=== PATIENT | male | born 1990 | race Caucasian/White ===

== ENCOUNTER 2018-09-11 07:24 | Inpatient (IN) | payer MEDICAID ==
[2018-09-11] VITALS (17 sets, daily range): BP systolic 95–119; BP diastolic 49–70; PULSE 80–110; RESP 10–86; Ht 172.7 cm; Wt 81.0 kg
[~2018-09-11] VITALS: Ht 172.7 cm; Wt 81.0 kg
[~2018-09-11 07:24] MED LIST: SUCCINYLCHOLINE CHLORIDE 100 MG/5 ML SYG IV ONE
[2018-09-11] MEDS ORDERED: KETOROLAC 30 MG INJ IV STA (08:40)
[2018-09-11] MEDS ORDERED: KETOROLAC 30 MG INJ IM STA (09:00)
[2018-09-11] MEDS ORDERED: morphine 4 MG/ML VIAL IV STA (09:17)
[2018-09-11] MEDS ORDERED: ONDANSETRON 4 MG INJ IV STA (09:17)
[2018-09-11] MEDS ORDERED: SOD CHLORIDE 0.9% 1,000 ML IV STA (09:17)
[2018-09-11] MEDS ORDERED: PIPER-TAZO 3.375 GM IV (PMX) 100 ML IVPB ONE (09:30)
--- NOTE | 2018-09-11 10:08 | ERD ---
ER Documentation Chief Complaint Chief Complaint abdominal pain since yesterday HPI This is a 28-year-old Mongolian-speaking male presents to the ED with complaints of gradually worsening right lower quadrant since yesterday morning. Patient does report associated nausea and lack of appetite. He has not had any vomiting episodes. He denies any fevers, chills, constipation, dysuria, frequency, urgency. He states pain is 8 out of 10 and localized to his right lower quadrant. Denies any known exacerbating or relieving factors. He denies any history of similar pain. He did not take any pain medications prior to coming. Patient is otherwise healthy with no other complaints. ROS All systems reviewed and are negative except as per history of present illness. Allergies Allergies: Coded Allergies: No Known Allergy (Unverified , 09/11/18) PMhx/Soc Medical and Surgical Hx: pt denies Medical Hx, pt denies Surgical Hx Hx Alcohol Use: No Hx Substance Use: No Hx Tobacco Use: No Smoking Status: Never smoker Physical Exam Vitals Vital Signs Date Temp Pulse Resp B/P (MAP) Pulse Ox O2 O2 Flow FiO2 Time Delivery Rate 09/11/18 98.6 96 18 114/55 97 07:26 (74) Physical Exam Const: + Appears uncomfortable. Head: Atraumatic Eyes: Normal Conjunctiva ENT: Normal External Ears, Nose and Mouth. Neck: Full range of motion. No meningismus. Resp: Clear to auscultation bilaterally Cardio: Regular rate and rhythm, no murmurs Abd: Soft, + moderate right lower quadrant tenderness. No rebound or guarding. No distention. Bowel sounds normal. Skin: No petechiae or rashes Back: No midline or flank tenderness Ext: No cyanosis, or edema Neur: Awake and alert Psych: Normal Mood and Affect Result Diagram: 09/11/18 0837 09/11/18 0837 Results 24 hrs Laboratory Tests Test 09/11/18 08:37 09/11/18 08:38 09/11/18 09:45 White Blood Count 13.8 10^3/ul Red Blood Count 4.92 10^6/ul Hemoglobin 15.7 g/dl Hematocrit 43.6 % Mean Corpuscular Volume 88.6 fl Mean Corpuscular Hemoglobin 31.9 pg Mean Corpuscular 36.0 g/dl Hemoglobin Concent Red Cell Distribution Width 12.1 % Platelet Count 228 10^3/UL Mean Platelet Volume 9.9 fl Immature Granulocytes % 0.600 % Neutrophils % 82.5 % Lymphocytes % 8.5 % Monocytes % 8.1 % Eosinophils % 0.1 % Basophils % 0.2 % Nucleated Red Blood Cells % 0.0 /100WBC Immature Granulocytes # 0.080 10^3/ul Neutrophils # 11.4 10^3/ul Lymphocytes # 1.2 10^3/ul Monocytes # 1.1 10^3/ul Eosinophils # 0.0 10^3/ul Basophils # 0.0 10^3/ul Nucleated Red Blood Cells # 0.0 10^3/ul Sodium Level 140 mmol/L Potassium Level 4.0 mmol/L Chloride Level 100 mmol/L Carbon Dioxide Level 28 mmol/L Anion Gap 12 Blood Urea Nitrogen 13 mg/dl Creatinine 0.83 mg/dl Est Glomerular Filtrat > 60 mL/min Rate mL/min Glucose Level 109 mg/dl Calcium Level 9.8 mg/dl Total Bilirubin 2.9 mg/dl Direct Bilirubin 0.00 mg/dl Indirect Bilirubin 2.9 mg/dl Aspartate Amino Transf (AST/SGOT) 23 IU/L Alanine 29 IU/L Aminotransferase (ALT/SGPT) Alkaline Phosphatase 62 IU/L Total Protein 8.6 g/dl Albumin 5.0 g/dl Globulin 3.60 g/dl Albumin/Globulin Ratio 1.38 Lipase 63 U/L Urine Color YELLOW Urine Clarity CLEAR Urine pH 7.0 Urine Specific [place] 1.018 Urine Ketones 1+ mg/dL Urine Nitrite NEGATIVE mg/dL Urine Bilirubin NEGATIVE mg/dL Urine Urobilinogen NEGATIVE mg/dL Urine Leukocyte Esterase NEGATIVE Shivam/ul Urine Hemoglobin NEGATIVE mg/dL Urine Glucose NEGATIVE mg/dL Urine Total Protein NEGATIVE mg/dl Prothrombin Time 14.5 Sec Prothrombin Time Ratio 1.1 INR International 1.12 Normalized Ratio Activated Partial Thromboplast 34.0 Sec Time Current Medications Medications Dose Sig/Eder Start Time Status Last (Trade) Ordered Route PRN Stop Time Admin Dose Reason Admin Ketorolac 30 mg ONCE STAT 09/11/18 DC Tromethamine IV 08:40 09/11/18 (Toradol) 09:01 Ketorolac 30 mg ONCE STAT 09/11/18 DC 09/11/18 Tromethamine IM 09:00 09/11/18 09:15 (Toradol) 09:01 Sodium 1,000 ml @ Q1H STAT 09/11/18 DC 09/11/18 Chloride 1,000 mls/hr IV 09:17 09/11/18 09:31 10:16 Piperacillin 100 ml @ ONCE ONCE 09/11/18 DC 09/11/18 Sod/ 200 mls/hr IVPB 09:30 09/11/18 09:38 Tazobactam 09:59 Sod Morphine 4 mg ONCE STAT 09/11/18 DC 09/11/18 Sulfate IV 09:17 09/11/18 09:31 (morphine) 09:22 Ondansetron 4 mg ONCE STAT 09/11/18 DC 09/11/18 HCl (Zofran IV 09:17 09/11/18 09:31 Inj) 09:22 Procedures/MDM EMERGENT LABS AND DIAGNOSTIC STUDIES: Lab Results above were reviewed and interpreted by me as below. CBC: + WBC of 13 with a left shift. CMP: no e/o severe acidosis, alkalosis, renal failure, diabetic ketoacidosis, liver disease Urine: no e/o acute infection or hematuria Radiology Results as interpreted by Radiology: PROCEDURE: ULTRASOUND ABDOMEN RIGHT LOWER QUADRANT CLINICAL INDICATION: 28-year-old male with right lower quadrant pain. TECHNIQUE: Multiple sonographic images of the right lower quadrant of the abdomen utilizing a linear ray transducer and graded compressive sonography. The images were reviewed on a high-resolution PACS workstation. COMPARISON: None. FINDINGS: There is a tubular structure within the right lower quadrant believed to represent the appendix measuring approximately 12 mm in greatest transverse dimension which is noncompressible. There is no significant free fluid or focal area of abnormal echogenicity. IMPRESSION: Noncompressible 12 mm tubular structure which is believed to represent the appendix. This is consistent with sonographic evidence for appendicitis. Clinical correlation is necessary. PROCEDURE: CT Abdomen and Pelvis without contrast. CLINICAL INDICATION: Abdominal pain. TECHNIQUE: Routine axial tomographic images of the abdomen and pelvis were obtained from the domes the diaphragm to the symphysis pubis. The patient was scanned withoutoral or intravenous contrast. Coronal and sagittal reformatted images were obtained from the axial source images. Images were reviewed on a high-resolution PACS workstation. The total exam CTDI equals 10.94 mGy and the total exam DLP equals 679.86 mGy-cm. One or more of the following dose reduction techniques were used: Automated exposure control, adjustment of the mA and / or kV according to patient size, or use of iterative reconstruction technique. DICOM images are available. COMPARISON: None. FINDINGS: The visualized portions of the lung bases are clear. Evaluation of the intra-abdominal solid organs is somewhat limited on this noncontrast examination. The liver appears normal in size. There is no intra or extrahepatic biliary dilatation. The gallbladder is unremarkable by CT cr iteria. The spleen, pancreas, and adrenal glands are unremarkable. The kidneys are symmetric in size. No renal, ureteral, or bladder calculi are identified. No perinephric inflammatory changes are identified. The urinary bladder is grossly unremarkable. The bowel demonstrates normal course and caliber. There is no evidence of bowel obstruction. There is an appendicolith in the appendiceal lumen. The distal appendix is mildly distended measuring 10 mm in diameter with thickening of the appendiceal wall and mild periappendiceal fat stranding. The pelvic organs are grossly unremarkable. No intraperitoneal free fluid, free air, or abscess is identified. No retroperitoneal, mesenteric, or inguinal lymphadenopathy is identified. The aorta is normal in caliber. The osseous structures demonstrate bilateral L5 pars defects. No significant subcutaneous soft tissue abnormalities are seen. IMPRESSION: 1. Acute appendicitis. No intraperitoneal free air or abscess is seen, although evaluation is limited secondary to absence of IV contrast. 2. L5 spondylolysis without spondylolisthesis. Nursing Notes Reviewed. Previous Medical Records requested via the Electronic Health Record. EMERGENCY DEPARTMENT COURSE / MEDICAL DECISION MAKING: This is a 28-year-old male presents the ED with right lower quadrant pain, concerning for appendicitis. CBC was remarkable for leukocytosis with a left shift, otherwise normal. CMP, UA unremarkable. Ultrasound revealed a noncompressible 12 mm tubular structure, believed to represent the appendix. I spoke with the on-call physician surgeon Dr. Vasquez who requested that patient get a CT of the abdomen which which was ordered and confirmed diagnosis. No signs of perforation or abscess. I discussed results with patient at bedside. Symptoms are currently in control. He was started on IV fluids, Zofran, morphine as well as Zosyn for prophylactic coverage. I spoke with Dr. Vasquez who will take patient to surgery today. Also spoke with my supervising physici michael, Dr. Huynh who will speak with the on-call hospitalist for admission and further management. Departure Diagnosis: Primary Impression: Appendicitis Appendicitis type: acute appendicitis Acute appendicitis type: with localized peritonitis Appendicitis gangrene presence: without gangrene Appendicitis perforation presence: without perforation Appendicitis abscess presence: without abscess Qualified Codes: K35.30 - Acute appendicitis with localized peritonitis, without perforation or gangrene Condition: BHUPINDER Badillo PA-C Sep 11, 2018 10:08
--- NOTE | 2018-09-11 15:08 | PREAC ---
Date/Time of Note Date/Time of Note DATE: 09/11/18 TIME: 15:07 Anesthesia Eval and Record Evaluation Time Pre-Procedure Interview DATE: 09/11/18 TIME: 15:07 Age 28 Sex male NPO: 8 hrs Preoperative diagnosis appendicitis Planned procedure laproscopic appendectomy Past Medical History Past Medical History: None Surgery & Anesthesia Issues No known issue Meds Anticoagulation: No Beta Oneal within 24 hr: No Reason Beta Oneal not given: Pt. not on B-Oneal No Active Prescriptions or Reported Meds Meds reviewed: Yes Allergies Coded Allergies: No Known Allergy (Unverified , 09/11/18) Allergies Reviewed: Yes Labs/Studies Labs Reviewed: Reviewed by anesthesiologist Result Diagram: 09/11/1837 09/11/1837 Laboratory Tests 09/11/18 08:37 test: N/A Pre-procedure Exam Last vitals Vital Signs Date Temp Pulse Resp B/P (MAP) Pulse Ox O2 O2 Flow FiO2 Time Delivery Rate 09/11/18 98.6 78 18 101/50 98 Room Air 12:19 (67) Airway: Adequate mouth opening, Adequate thyromental dist Mallampati: Mallampati IV Teeth: Normal Lung: Normal Heart: Normal ASA Physical Status ASA physical status: 1 Emergency: None Pre-operative Attestations Prior to commencing anesthesia and surgery, the patient was re-evaluated, there was verification of: *The patient's identity *The results of appropriate recent lab work and preoperative vital signs *The above evaluation not changing prior to induction *Anesthetic plan, risk benefits, alternative and complications discussed with patient/family; questions answered; patient/family understands, accepts and wishes to proceed. VERONICA ELIZALDE DO Sep 11, 2018 15:08
[2018-09-11] MEDS ORDERED: MIDAZOLAM 1 MG/ML 2 ML INJ ONE (15:10)
[2018-09-11] MEDS ORDERED: PROPOFOL 20 ML ONE (15:10)
[2018-09-11] MEDS ORDERED: LIDOCAINE 2% (SDV) 5 ML INJ ONE (15:10)
[2018-09-11] MEDS ORDERED: ROCURONIUM 50 MG INJ ONE (15:10)
[2018-09-11] MEDS ORDERED: ROPIVACAINE 0.5 % 30 ML VIAL ONE (15:11)
[2018-09-11] MEDS ORDERED: MEPERIDINE 25 MG INJ IV PRN (15:30)
[2018-09-11] MEDS ORDERED: ONDANSETRON 4 MG INJ IV PRN ×3 (15:30→17:30)
[2018-09-11] MEDS ORDERED: HYDROmorphONE 1 MG/5 ML IV SYRINGE IV PRN ×2 (15:30)
--- NOTE | 2018-09-11 15:32 | CONS ---
Assessment/Plan Assessment/Plan Assessment/Plan (Daily) Acute appendicitis Plan: Laparoscopic appendectomy, possible open. The procedure and risks have been outlined to the patient and the patient has given an informed consent Consultation Date/Type/Reason Admit Date/Time Sep 11, 2018 at 11:17 Date of Consultation: Sep 11, 2018 Type of Consult General surgery Reason for Consultation Acute appendicitis Date/Time of Note DATE: 09/11/18 TIME: 15:29 Hx of Present Illness The patient is an otherwise healthy 28-year-old gentleman who presents with a one day history of abdominal pain which intensified in severity than localized to the right lower quadrant. In the emergency room he was noted to have a tender right lower quadrant, an elevated white blood cell count, and a CT compatible with acute appendicitis. He has had no fevers or chills. Review of systems: Head ears eyes nose and throat: Unremarkable Pulmonary: No history of asthma, pneumonia, or shortness of breath Cardiac: No history of chest pain, [place] or arrhythmia Abdomen: As in the HPI Extremities: No history of injuries Past Medical History Medical History: no pertinent history Home Meds No Active Prescriptions or Reported Meds Medications Current Medications Hydromorphone HCl (Dilaudid) 0.2 mg PACU PRN IV MILD PAIN 1-3; Start 09/11/18 at 15:30; Status UNV Hydromorphone HCl (Dilaudid) 0.4 mg PACU PRN IV MOD PAIN 4-6; Start 09/11/18 at 15:30; Status UNV Ondansetron HCl (Zofran Inj) 4 mg PACU ORDER PRN IV NAUSEA/VOMITING; Start 09/11/18 at 15:30; Status UNV Meperidine HCl (Demerol) 25 mg PACU ORDER PRN IV .RIGORS; Start 09/11/18 at 15:30; Status UNV Allergies: Coded Allergies: No Known Allergy (Unverified , 09/11/18) Past Surgical History Past Surgical Hx: no surgical history Family History Significant Family History: no pertinent family hx Social History Smoking Status: Never smoker Exam/Review of Systems Exam Vitals Vital Signs Date Temp Pulse Resp B/P (MAP) Pulse Ox O2 O2 Flow FiO2 Time Delivery Rate 09/11/18 98.6 78 18 101/50 98 Room Air 12:19 (67) Constitutional: alert, oriented (Speaks only Danish) Psych: no complaints Head: normocephalic Eyes: nl conjunctiva ENMT: nl external ears & nose Neck: supple Respiratory: clear to auscultation Cardiovascular: regular rate and rhythm Gastrointestinal: tender (Tender right lower quadrant with slight guarding and no rebound) Musculoskeletal: nl extremities to inspection Extremities: normal pulses Neurological: MOTHER SUPERIOR II-XII intact Skin: nl turgor Results Result Diagram: 09/11/18 0837 09/11/18 0837 Results 24hrs Laboratory Tests Test 09/11/18 08:37 09/11/18 08:38 09/11/18 09:45 White Blood Count 13.8 H Red Blood Count 4.92 Hemoglobin 15.7 Hematocrit 43.6 Mean Corpuscular Volume 88.6 Mean Corpuscular Hemoglobin 31.9 Mean Corpuscular Hemoglobin Concent 36.0 Red Cell Distribution Width 12.1 Platelet Count 228 Mean Platelet Volume 9.9 Immature Granulocytes % 0.600 H Neutrophils % 82.5 H Lymphocytes % 8.5 L Monocytes % 8.1 Eosinophils % 0.1 Basophils % 0.2 Nucleated Red Blood Cells % 0.0 Immature Granulocytes # 0.080 H Neutrophils # 11.4 H Lymphocytes # 1.2 Monocytes # 1.1 H Eosinophils # 0.0 Basophils # 0.0 Nucleated Red Blood Cells # 0.0 Sodium Level 140 Potassium Level 4.0 Chloride Level 100 Carbon Dioxide Level 28 Anion Gap 12 Blood Urea Nitrogen 13 Creatinine 0.83 Est Glomerular Filtrat Rate mL/min > 60 Glucose Level 109 Calcium Level 9.8 Total Bilirubin 2.9 H Direct Bilirubin 0.00 Indirect Bilirubin 2.9 H Aspartate Amino Transf (AST/SGOT) 23 Alanine Aminotransferase (ALT/SGPT) 29 Alkaline Phosphatase 62 Total Protein 8.6 H Albumin 5.0 H Globulin 3.60 H Albumin/Globulin Ratio 1.38 Lipase 63 Urine Color YELLOW Urine Clarity CLEAR Urine pH 7.0 Urine Specific [place] 1.018 Urine Ketones 1+ H Urine Nitrite NEGATIVE Urine Bilirubin NEGATIVE Urine Urobilinogen NEGATIVE Urine Leukocyte Esterase NEGATIVE Urine Hemoglobin NEGATIVE Urine Glucose NEGATIVE Urine Total Protein NEGATIVE Prothrombin Time 14.5 Prothrombin Time Ratio 1.1 INR International Normalized Ratio 1.12 Activated Partial Thromboplast Time 34.0 Medications Medication Current Medications Hydromorphone HCl (Dilaudid) 0.2 mg PACU PRN IV MILD PAIN 1-3; Start 09/11/18 at 15:30; Status UNV Hydromorphone HCl (Dilaudid) 0.4 mg PACU PRN IV MOD PAIN 4-6; Start 09/11/18 at 15:30; Status UNV Ondansetron HCl (Zofran Inj) 4 mg PACU ORDER PRN IV NAUSEA/VOMITING; Start 09/11/18 at 15:30; Status UNV Meperidine HCl (Demerol) 25 mg PACU ORDER PRN IV .RIGORS; Start 09/11/18 at 15:30; Status UNV MALINDA GALLEGOS MD Sep 11, 2018 15:32
[2018-09-11] MEDS ORDERED: CEFAZOLIN 1 GM INJ ONE (16:22)
[2018-09-11] MEDS ORDERED: DEXAMETHASONE 4 MG/ML 5 ML INJ ONE (16:40)
[2018-09-11] MEDS ORDERED: ONDANSETRON 4 MG INJ ONE (16:40)
[2018-09-11] MEDS ORDERED: NEOSTIGMINE 10 MG INJ ONE (16:48)
[2018-09-11] MEDS ORDERED: GLYCOPYRROLATE 0.4 MG INJ ONE (16:48)
--- NOTE | 2018-09-11 17:10 | PAC ---
Date/Time of Note Date/Time of Note DATE: 09/11/18 TIME: 17:10 Post-Anesthesia Notes Post-Anesthesia Note Last documented vital signs Vital Signs Date Temp Pulse Resp B/P (MAP) Pulse Ox O2 O2 Flow FiO2 Time Delivery Rate 09/11/18 98.9 95 22 105/62 98 Room Air 1711 Activity: WNL Respiratory function: WNL Cardiovascular function: WNL Mental status: Baseline Pain reasonably controlled: Yes Hydration appropriate: Yes Nausea/Vomiting absent: Yes VERONICA ELIZALDE DO Sep 11, 2018 17:10
--- NOTE | 2018-09-11 17:10 | OPR ---
Date/Time of Note Date/Time of Note DATE: 09/11/18 TIME: 17:06 Operative Report Procedure Date: Sep 11, 2018 Preoperative Diagnosis Acute appendicitis Postoperative Diagnosis Acute appendicitis without localized peritonitis Operation/Procedure Performed Laparoscopic appendectomy Surgeon Malinda Gallegos MD [employer] None Anesthesia Type: general Anesthesiologist: VERONICA ELIZALDE DO Estimated Blood Loss: 0 - 10 ml's Transfusion none Specimen Appendix Grafts/Implants none Tubes/Drains None Complications none Pt Condition Post Procedure: stable Disposition: PACU Indications Acute appendicitis Procedure Description After satisfactory general endotracheal anesthesia was achieved, the abdomen was prepped and draped in the usual fashion. The abdomen was insufflated with carbon dioxide through an umbilical Veress needle to 15 mmHg pressure. The Veress needle was removed and the umbilical incision extended to 5 mm through which a 5 mm trocar was placed. A 5 mm 0 degree lens was placed. Laparoscopy showed an acutely inflamed intraperitoneal appendix without localized peritonitis. Under direct visualization a 5 mm suprapubic trocar was placed as well as a 12 mm left lower quadrant trocar. A window was made in the mesoappendix through which a vascular stapler was placed across the base of the cecum, closed and fired, disconnecting the appendix from the cecum. A second firing of the stapler across the mesoappendix fully freed the appendix which was placed intact into an Endo Catch removed via the 12 mm port site. Hemostasis of both staple lines was total and irrigant returned clear. 2 fascial sutures of 0 Vicryl were placed at the 12 mm port site with the assistance of a priscilla-close device. The abdomen was then desufflated and the trochars were removed. The fascial sutures were tied down. The skin punctures were closed with 3-0 subcuticular Vicryl and Dermabond. Sponge and needle counts were reported as correct x2. MALINDA GALLEGOS MD Sep 11, 2018 17:10
--- NOTE | 2018-09-11 17:18 | HP ---
Date/Time of Note Date/Time of Note DATE: 09/11/18 TIME: 17:18 Assessment/Plan VTE Prophylaxis Pharmacological prophylaxis: NA/contraindicated Pharm contraindication: low risk/ambulating Lines/Catheters IV Catheter Type (from [facility]): Peripheral IV Assessment/Plan Hospital Course 28-year-old male with no significant past medical history who came to the emergency room with chief complaint of abdominal pain with CT evidence of acute appendicitis. The patient underwent a laparoscopic appendectomy and the patient is admitted to inpatient setting for further monitoring. 1. Acute appendicitis without localized peritonitis. -Status post laparoscopic appendectomy on 09/11/2018. -Continue pain control. -Resumption of diet as per general surgery. -Encourage frequent ambulation and use of incentive spirometry. 2. Fluids, electrolytes, and nutrition. -Advancement of diet as per general surgery. 3. DVT prophylaxis. -Bilateral SCDs. Plan: The patient will be admitted to inpatient medical surgical floor. The patient will be started on a clear liquid diet and the diet will be advanced as tolerated. The patient will be started on DVT prophylaxis. The patient will remain a full code. Activities will be as tolerated. The rest of the patient's management will be based on the clinical course, inputs from consultants, and the results of diagnostic studies. Based on the patient's clinical presentation, he most probably requires at least 1 midnight's stay for further management and evaluation of his clinical presentation. The patient was seen in collaboration with Dr. Dos Santos. Result Diagram: 09/11/18 0837 09/11/18 0837 Results 24hrs Laboratory Tests Test 09/11/18 08:37 09/11/18 08:38 09/11/18 09:45 White Blood Count 13.8 H Red Blood Count 4.92 Hemoglobin 15.7 Hematocrit 43.6 Mean Corpuscular Volume 88.6 Mean Corpuscular Hemoglobin 31.9 Mean Corpuscular Hemoglobin Concent 36.0 Red Cell Distribution Width 12.1 Platelet Count 228 Mean Platelet Volume 9.9 Immature Granulocytes % 0.600 H Neutrophils % 82.5 H Lymphocytes % 8.5 L Monocytes % 8.1 Eosinophils % 0.1 Basophils % 0.2 Nucleated Red Blood Cells % 0.0 Immature Granulocytes # 0.080 H Neutrophils # 11.4 H Lymphocytes # 1.2 Monocytes # 1.1 H Eosinophils # 0.0 Basophils # 0.0 Nucleated Red Blood Cells # 0.0 Sodium Level 140 Potassium Level 4.0 Chloride Level 100 Carbon Dioxide Level 28 Anion Gap 12 Blood Urea Nitrogen 13 Creatinine 0.83 Est Glomerular Filtrat Rate mL/min > 60 Glucose Level 109 Calcium Level 9.8 Total Bilirubin 2.9 H Direct Bilirubin 0.00 Indirect Bilirubin 2.9 H Aspartate Amino Transf (AST/SGOT) 23 Alanine Aminotransferase (ALT/SGPT) 29 Alkaline Phosphatase 62 Total Protein 8.6 H Albumin 5.0 H Globulin 3.60 H Albumin/Globulin Ratio 1.38 Lipase 63 Urine Color YELLOW Urine Clarity CLEAR Urine pH 7.0 Urine Specific [place] 1.018 Urine Ketones 1+ H Urine Nitrite NEGATIVE Urine Bilirubin NEGATIVE Urine Urobilinogen NEGATIVE Urine Leukocyte Esterase NEGATIVE Urine Hemoglobin NEGATIVE Urine Glucose NEGATIVE Urine Total Protein NEGATIVE Prothrombin Time 14.5 Prothrombin Time Ratio 1.1 INR International Normalized Ratio 1.12 Activated Partial Thromboplast Time 34.0 HPI/ROS Admit Date/Time Admit Date/Time Sep 11, 2018 at 11:17 Hx of Present Illness 28-year-old male with no significant past medical or surgical history who came to the emergency room with chief complaint of abdominal pain. The patient also verbalized associated nausea and lack of appetite. There was no reported vomiting. The patient denied any fevers, or chills. In the emergency room, the patient underwent a CT scan of the abdomen and pelvis that was showing acute appendicitis. The patient was also noticed to have leukocytosis. The patient remained afebrile. The patient was taken to the OR by the surgeon and the patient underwent a laparoscopic appendectomy. ROS Eyes: no complaints ENT: no complaints Respiratory: no complaints Cardiovascular: no complaints Gastrointestinal: no complaints Genitourinary: no complaints Musculoskeletal: no complaints Skin: no complaints Neurologic: no complaints Endocrine: no complaints Lymphatic: no complaints Psychological: no complaints Immunologic: no complaints PMH/Family/Social Past Medical History Medical History: no pertinent history Medications Current Medications Hydromorphone HCl (Dilaudid) 0.2 mg PACU PRN IV MILD PAIN 1-3; Start 09/11/18 at 15:30; Stop 09/11/18 at 20:00 Hydromorphone HCl (Dilaudid) 0.4 mg PACU PRN IV MOD PAIN 4-6; Start 09/11/18 at 15:30; Stop 09/11/18 at 20:00 Ondansetron HCl (Zofran Inj) 4 mg PACU ORDER PRN IV NAUSEA/VOMITING; Start 09/11/18 at 15:30; Stop 09/11/18 at 20:00 Meperidine HCl (Demerol) 25 mg PACU ORDER PRN IV .RIGORS Last administered on 09/11/18at 17:14; Admin Dose 25 MG; Start 09/11/18 at 15:30; Stop 09/11/18 at 20:00 Oxycodone/ Acetaminophen (Percocet (5/ 325)) 1 tab Q4H PRN PO .MILD PAIN (1-3); Start 09/11/18 at 17:30 Oxycodone/ Acetaminophen (Percocet (5/ 325)) 2 tab Q4H PRN PO .MODERATE PAIN (4-6); Start 09/11/18 at 17:30 Morphine Sulfate (morphine) 2 mg ONCE PRN IV .SEVERE PAIN 7-10; Start 09/11/18 at 17:30; Stop 09/11/18 at 23:00 Ondansetron HCl (Zofran Inj) 4 mg Q6H PRN IV NAUSEA/VOMITING; Start 09/11/18 at 17:30 Cefazolin Sodium 50 ml @ 100 mls/hr Q8 IVPB ; Start 09/11/18 at 22:00 Coded Allergies: No Known Allergy (Unverified , 09/11/18) Past Surgical History Past Surgical Hx: no surgical history Family History Significant Family History: no pertinent family hx Social History 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 Alcohol Use: none Smoking Status: Never smoker Drug Use: none Exam/Review of Systems Vital Signs Vitals Vital Signs Date Temp Pulse Resp B/P (MAP) Pulse Ox O2 O2 Flow FiO2 Time Delivery Rate 09/11/18 98.6 78 18 101/50 98 Room Air 12:19 (67) Exam Exam General: Adequately build 28 year-old male lying in bed in no apparent distress. HEENT: Normocephalic, atraumatic. Eyes: Anicteric sclerae, conjunctivae clear. ENT: Nasal septum midline, oral mucosa moist. Neck supple, no JVD noticed. Respiratory: Bilaterally clear breath sounds. No use of accessory muscles of respiration. No adventitious breath sounds. Cardiovascular: S1, S2 heard. No murmurs or gallops. Abdomen: Soft and nondistended. Dressings over laparoscopic incision sites. Bowel sounds positive in all 4 quadrants. Genitourinary: Deferred. Extremities: No cyanosis, no clubbing, no edema. Peripheral pulses palpable. Neurologic: Cranial nerves II through XII grossly intact. The patient is awake, alert, and oriented. Skin: Normal skin turgor. No skin rashes. Additional Comments CT Abdomen & Pelvis IMPRESSION: 1. Acute appendicitis. No intraperitoneal free air or abscess is seen, although evaluation is limited secondary to absence of IV contrast. 2. L5 spondylolysis without spondylolisthesis. ALEXIA HANSEN NP Sep 11, 2018 17:18
[2018-09-11] MEDS ORDERED: OXYCODONE/ACETAMINOPHEN (5/325) TAB PO PRN ×2 (17:30)
[2018-09-11] MEDS ORDERED: HYDROCODONE/APAP (5/325) TAB PO PRN (17:30)
[2018-09-11] MEDS ORDERED: NACL 0.9% 3 ML SYG IV SCH (17:30)
[2018-09-11] MEDS ORDERED: morphine 2 MG INJ IV PRN ×2 (17:30)
[2018-09-11] MEDS ORDERED: ACETAMINOPHEN 325 MG TAB PO PRN (17:30)
[2018-09-11] MEDS: CEFAZOLIN 1 GM/50 ML (PMX) 50 ML IVPB SCH (23:04)
[2018-09-12 02:00] VITALS: BP 100/56; PULSE 84; RESP 18
[2018-09-12] MEDS: CEFAZOLIN 1 GM/50 ML (PMX) 50 ML IVPB SCH ×2 (06:39→15:04)
[2018-09-12 07:43] VITALS: BP 110/59; PULSE 89; RESP 18
--- NOTE | 2018-09-12 12:23 | QN ---
Documentation Comment Postoperative day #1 Markedly symptomatically improved Abdominal examination is benign Patient is cleared for discharge home today Will need p.o. pain medications and antibiotics MALINDA GALLEGOS MD Sep 12, 2018 12:23
[2018-09-12 14:10] VITALS: BP 118/58; PULSE 82; RESP 18
[2018-09-12] MEDS ORDERED: IBUP-1541 PO (15:09)
[2018-09-12] MEDS ORDERED: CEPH-443 PO (15:09)
--- NOTE | 2018-09-12 15:12 | PDOCDIS ---
Discharge Instructions CONDITION [id number] Patient Condition: [id number] Stable HOME CARE INSTRUCTIONS: [id number] Diet Instructions: [id number] Regular FOLLOW UP/APPOINTMENTS Follow-up Plan Aurelio Vasquez MD Specialty: General Surgery Office Address [address] [place] [address] Office OTHER ORDERS: Other Orders: 1. Regular diet as tolerated. 2. Keep incisions clean and dry. May shower. Avoid tub baths and swimming for 2 weeks. Use mild soap and pat dry the incisions. 3. Take medications as needed for pain. 4. Call the surgeon or go to the nearest ER if you have severe abdominal pain despite pain medications. 5. Call the surgeon or go to the nearest ER if you notice any bleeding or secretions coming out of the incision sites. Also call the surgeon if you notice any blood in stool, if you have persistent fevers, or any other unusual signs or symptoms. 6. Follow-up with the surgeon Dr. Vasquez in 7 days for incision check. 7. Avoid heavy lifting [more than 10-15 pounds] for 4 weeks. ALEXIA HANSEN NP Sep 12, 2018 15:12
--- NOTE | 2018-09-12 17:35 | DS ---
Date/Time of Note Date/Time of Note DATE: 09/12/18 TIME: 17:35 Discharge Summary Admission/Discharge Info Admit Date/Time Sep 11, 2018 at 11:17 Discharge Date/Time Sep 12, 2018 at 17:06 Discharge Diagnosis 1. Acute appendicitis. Status post laparoscopic appendectomy. Patient Condition: Stable Consults 1. Aurelio Vasquez MD, General Surgery. Procedures Operative Report Procedure Date: Sep 11, 2018 Preoperative Diagnosis Acute appendicitis Postoperative Diagnosis Acute appendicitis without localized peritonitis Operation/Procedure Performed Laparoscopic appendectomy Surgeon Aurelio Vasquez MD CT Abdomen & Pelvis IMPRESSION: 1. Acute appendicitis. No intraperitoneal free air or abscess is seen, although evaluation is limited secondary to absence of IV contrast. 2. L5 spondylolysis without spondylolisthesis. Hx of Present Illness This is a 28-year-old male with no significant past medical or surgical history who came to the emergency room with chief complaint of abdominal pain. The patient also verbalized associated nausea and lack of appetite. There was no reported vomiting. The patient denied any fevers, or chills. In the emergency room, the patient underwent a CT scan of the abdomen and pelvis that was showing acute appendicitis. The patient was also noticed to have leukocytosis. The patient remained afebrile. The patient was taken to the OR by the surgeon and the patient underwent a laparoscopic appendectomy. Hospital Course Status post appendectomy, the patient was moved to medical surgical floor. The patient was started on a clear liquid diet and the diet was advanced as tolerated to a regular consistency diet. The patient was encouraged on frequent ambulation and frequent use of incentive spirometry. The patient was maintained on antimicrobials as per the surgeon. The patient will be discharged home on antimicrobials as per the surgeon's recommendations. Status post appendectomy, the patient's leukocytosis improved. The patient had a fast postoperative recovery. The patient has no significant other medical problems. The patient will be discharged home today. Discharge Instructions 1. Regular diet as tolerated. 2. Keep incisions clean and dry. May shower. Avoid tub baths and swimming for 2 weeks. Use mild soap and pat dry the incisions. 3. Take medications as needed for pain. 4. Call the surgeon or go to the nearest ER if you have severe abdominal pain despite pain medications. 5. Call the surgeon or go to the nearest ER if you notice any bleeding or secretions coming out of the incision sites. Also call the surgeon if you notice any blood in stool, if you have persistent fevers, or any other unusual signs or symptoms. 6. Follow-up with the surgeon Dr. Vasquez in 7 days for incision check. 7. Avoid heavy lifting [more than 10-15 pounds] for 4 weeks. The patient verbalized understanding of his discharge instructions. At this time I would like to thank Dr. Vasquez for seeing the patient, doing the necessary procedures, and providing clinical recommendations. The patient was seen in collaboration with Dr. Dos Santos. Home Meds Active Scripts Cephalexin* (Keflex*) 500 Mg Capsule, 500 MG PO Q6, #20 CAP Prov:ALEXIA HANSEN [employer] 09/12/18 Ibuprofen* (Ibuprofen*) 400 Mg Tablet, 400 MG PO Q6H PRN for PAIN, #14 TAB Prov:ALEXIA HANSEN [employer] 09/12/18 Follow-up Plan Aurelio Vasquez MD Specialty: General Surgery Office Address [address] [place] [address] Office Primary Care Provider Care Physician No Primary Pending Labs Laboratory Tests Test 09/12/18 05:08 White Blood Count 9.7 10^3/ul (4.8-10.8) Red Blood Count 4.74 10^6/ul (4.70-6.10) Hemoglobin 15.0 g/dl (14.0-18.0) Hematocrit 42.4 % (42.0-52.0) Mean Corpuscular Volume 89.5 fl (82.0-101.0) Mean Corpuscular Hemoglobin 31.6 pg (29.0-33.0) Mean Corpuscular Hemoglobin Concent 35.4 g/dl (32.0-37.0) Red Cell Distribution Width 11.9 % (11.5-14.5) Platelet Count 224 10^3/UL (140-415) Mean Platelet Volume 10.2 fl (7.4-10.4) Immature Granulocytes % 0.500 % (0.001-0.429) Neutrophils % 84.1 % (39.0-77.0) Lymphocytes % 11.1 % (15.0-51.0) Monocytes % 4.1 % (0.0-11.0) Eosinophils % 0.0 % (0.0-7.0) Basophils % 0.2 % (0.0-2.0) Nucleated Red Blood Cells % 0.0 /100WBC (0.0-0.0) Immature Granulocytes # 0.050 10^3/ul (0.0-0.031) Neutrophils # 8.2 10^3/ul (1.6-7.5) Lymphocytes # 1.1 10^3/ul (0.8-2.9) Monocytes # 0.4 10^3/ul (0.3-0.9) Eosinophils # 0.0 10^3/ul (0.0-0.5) Basophils # 0.0 10^3/ul (0.0-0.1) Nucleated Red Blood Cells # 0.0 10^3/ul (0.0-0.0) Sodium Level 140 mmol/L (135-144) Potassium Level 4.7 mmol/L (3.5-5.1) Chloride Level 101 mmol/L (97-110) Carbon Dioxide Level 28 mmol/L (21-31) Anion Gap 11 (5-13) Blood Urea Nitrogen 13 mg/dl (7-20) Creatinine 0.80 mg/dl (0.61-1.24) Est Glomerular Filtrat Rate mL/min > 60 mL/min (>60) Glucose Level 151 mg/dl (70-220) Calcium Level 9.7 mg/dl (8.4-10.2) Phosphorus Level 3.7 mg/dl (2.5-4.9) Magnesium Level 2.2 mg/dl (1.7-2.5) Total Bilirubin 3.4 mg/dl (0.2-1.3) Direct Bilirubin 0.00 mg/dl (0.00-0.20) Indirect Bilirubin 3.4 mg/dl (0-1.1) Aspartate Amino Transf (AST/SGOT) 41 IU/L (15-46) Alanine Aminotransferase (ALT/SGPT) 17 IU/L (13-69) Alkaline Phosphatase 44 IU/L (42-121) Total Protein 7.4 g/dl (6.1-8.1) Albumin 4.3 g/dl (3.3-4.9) Globulin 3.10 g/dl (1.3-3.2) Albumin/Globulin Ratio 1.38 ALEXIA HANSEN NP Sep 12, 2018 17:35
== END 2018-09-12 17:06 | disposition home or self-care (01) | DRG 343 ==
LOC: FTE 07:24 → REC 11:17 → 2NE 18:30
PROVIDERS: ADMIT Internal Medicine; ATTEND Internal Medicine
PROC: 0DTJ4ZZ Resection of Appendix, Percutaneous Endoscopic Approach (ICD-10-PCS; principal; 2018-09-11 14:30)
DX: K35.80 Unspecified acute appendicitis (principal)
CPT/HCPCS: 74176; 76705; 80053; 81003; 83690; 83735; 84100; 85025; 85610; 85730; 88304; J0690; J1100; J1885; J2175; J2250; J2270; J2405; J2543; J2710; J2795; J3010; J7030